=== PATIENT | male | born 1980 ===

== ENCOUNTER 2021-09-17 00:54 | Emergency (ER) | payer OTHER ==
[~2021-09-17] VITALS: Ht 182.9 cm; Wt 79.4 kg
[2021-09-17] MEDS ORDERED: PERCOCET 5-3251 EACH PO (04:07)
== END 2021-09-17 04:12 | disposition home or self-care (01) ==
LOC: ER 00:54
DX: S62.102A Fracture of unspecified carpal bone, left wrist, initial encounter for closed fracture (principal); W19.XXXA Unspecified fall, initial encounter; Y92.89 Other specified places as the place of occurrence of the external cause